=== PATIENT | male | born 1960 | race Caucasian/White ===

== ENCOUNTER 2023-10-02 14:53 | Inpatient (IN) | payer OTHER, SELFPAY ==
[2023-10-01] VITALS (9 sets, daily range): BP systolic 111–148; BP diastolic 64–92; PULSE 65; BMI 36.1; BMI 35.4
--- NOTE | 2023-10-01 11:19 | ED.CVA ---
History of Present Illness
General
Chief Complaint: CVA/TIA Symptoms
Source: patient
Exam Limitations: none
Time Seen by Provider: 10/01/23 11:06
Onset of Stroke Symptoms
Onset of symptoms known: Yes
Date of onset of symptoms: 10/01/23
Time pt last seen normal is known: Yes
Date last time pt seen normal: 10/01/23
Travel History
Have you had any contact with someone who has COVID-19?: No
Do you have any symptoms of coronavirus? Fever > 100 degrees, chills, cough, shortness of breath, sore throat, loss of taste or smell, muscle aches, or headache?: No
History of Present Illness
History of Present Illness:
See MDM
Past History
Past History
ED Past Medical History: CAD, HTN and Hypercholesterolemia
ED Past Surgical History: Cardiac
Social History
Tobacco: Smoker
Alcohol: None
Phy Exam
Physical Exam
Physical Exam:
See MDM
Scores
NIH Stroke Score
Level of Consciousness: 0 - Alert
LOC Questions: 0-Answers both correctly
LOC Commands: 0-Performs both correctly
Best Horizontal Gaze: 0-Normal
Visual [place]: 0=Normal, no visual loss
Facial Palsy: 0=Normal, symmetrical
Motor - Right Arm: 0=No drift 10 seconds
Motor - Left Arm: 0=No drift 10 seconds
Motor - Right Le-No drift 5 seconds
Motor - Left Le-No drift 5 seconds
Limb Ataxia: 0-Absent
Sensation: 0-Normal
Best Language: 0-No aphasia
Dysarthria: 0-Normal
Extinction and Inattention: 0-No abnormality
Total Score:: 0
Course
Orders/Labs/Results
Orders:
Orders
10/01/23 11:18
Electrocardiogram (*1) Urgent
Reason for Study: TIA/Stroke
CT Head W/o Iv Contrast Urgent
Comment:
Reason For Exam: Intermittent left facial droop
EKG- Treatment ONCE
10/01/23 11:21
Basic Metabolic Panel Urgent
Complete Blood Count/With Diff Urgent
Lyme Progressive Urgent
PTT Urgent
Prothrombin Time Urgent
10/01/23 12:02
Consult Neurology [NEUROLOGY CONSULT] Urgent
Consulting Provider: Quinn Barrera
Was physician already notified: Yes
10/01/23 12:05
CT Head & Neck Angio W/wo IV Urgent
Comment:
Reason For Exam: intermittent left facial droop
10/01/23 12:08
Add On- LAB Routine
Tests Added?: folate, ferritin, TSH reflex, B12, hbA1c, lipid panel
10/01/23 12:28
Aspirin 325 mg PO NOW STA
Abnormal Lab Results
10/01/23
11:21
RDW 14.6 H %
(11.5-14.5)
Abs Immat Gran (auto) 0.1 H 10^3/uL
(0-0.05)
Absolute Lymphs (auto) 3.5 H 10^3/uL
(1.2-3.4)
Absolute Monos (auto) 0.8 H 10^3/uL
(0.1-0.6)
Chloride 108 H mmol/L
(98-107)
10/01/23 11:21
10/01/23 11:21
Vital Signs
Initial and Last Documented VS:
Initial Vital Signs
Temp Pulse Resp BP Pulse Ox
98.1 F 74 20 148/89 98
10/01/23 10:59 10/01/23 10:59 10/01/23 10:59 10/01/23 10:59 10/01/23 10:59
Last Documented Vital Signs
Temp Pulse Resp BP Pulse Ox
98.1 F 67 13 148/92 96
10/01/23 10:59 10/01/23 11:16 10/01/23 11:16 10/01/23 11:16 10/01/23 11:16
MDM/Problems Addressed
Differential Diagnosis Includes:
HPI and MDM Narrative:
63-year-old male presenting for intermittent left facial droop. Patient states that has been ongoing for the past several weeks. He has noticed intermittent facial tingling and intermittent left hand tingling. Patient did not seek medical
attention because he was on vacation. They recently returned from a trip.
Patient states the symptoms reoccurred this morning. Around 8 AM, he noted that his left face was drooping. It lasted for 10 minutes. During this time, he was having trouble talking because his tongue would not move appropriately, per patient
Patient has a history of CABG and is an active smoker. Patient states he is on aspirin and Plavix
Physical exam
General: Well appearing and non-toxic
HEENT: protecting airway
Neck: appears supple
CV: No evidence of cyanosis. Regular rate and rhythm
Resp: No accessory muscle use
Abd: Non-distended
Extremities: No deformities
Neuro: alert. No focal deficits
Psych: Normal affect
Skin: Intact
Problems Addressed including Acute and Chronic Conditions affecting care:
1. Rolling TIAs
Acuity: acute
Prognosis: stable
Details: Given the past medical history and his intermittent TIAs, will admit
Updates
[address] head negative. Workup negative. Patient remains symptom-free. Case discussed with neurology who will evaluate and suggested CTA
Differential Diagnosis (but not limited to):
Testing considered:
Drug therapy (if applicable): OTC meds, please see d/c instruction regarding Rx drugs
Amount and/or Complexity of Data Reviewed
Clinical info obtained from: Patient
External data reviewed: N/A
Labs I independently reviewed (but not limited to): White blood cell count normal
Radiology: The CT scan was personally and independently reviewed. In addition, official CT report reviewed.
Pulse Ox: not hypoxic
EKG independently reviewed: Sinus rhythm, normal axis, no STEMI
Barrel Lapper: sinus rhythm
Critical Care: N/A
Risk of Complication:
Social Determinants of health: Good social support
Discussed with other providers: Neurology, hospitalist
Escalation of Care includes Admit/Obs: Given concern for: TIAs, will admit
Occasional wrong word or 'sound a like' substitutions may have occurred due to the inherent limitations of voice recognition software. Read the chart carefully and recognize, using context, where substitutions have occurred.
*Critical Care Note
Total Time (30-74mins, 75-104mins- exclusive of procedures): Not Applicable
ED Attending Note
-
Portions of this chart may have been created with voice recognition software.� Occasional wrong word or��sound alike� substitutions may have occurred due to the inherent limitations of voice recognition software.
Discharge Plan
Departure
Patient Disposition: Admit
Date of Disposition: 10/01/23
Time of Disposition: 12:29
Admit to: Telemetry
Presentation/result/management discussed w/ accepting MD/DO: Hospitalist
Discharge Problem:
Brain TIA
Referrals:
Kali Vasquez MD [Family Provider] -
Interventions
Interventions:
*Risk Screen - Suicide Last Done: 10/01/23 10:59
*General Assessment Last Done: 10/01/23 10:59
*Neglect/Abuse Screening Last Done: 10/01/23 10:59
ED- Fall Risk Assessment Last Done: 10/01/23 11:18
*ED COVID-19 Vaccine History Last Done: 10/01/23 11:07
ED- Pulmonary Assessment Last Done: 10/01/23 11:15
ED- Neurological Assessment Last Done: 10/01/23 11:15
ED- Cardiac Assessment Last Done: 10/01/23 11:15
Discharge Date and Time
Print Language: FRENCH
[2023-10-01 11:40] LABS: APTT 26.3 Sec (23.4-35.0); INR 0.98; PT 12.8 Sec (11.4-14.6)
[2023-10-01 11:50] LABS: Blood Urea Nitrogen 15 mg/dl (9-20); Calcium 9.7 mg/dl (8.4-10.2); Carbon Dioxide 22 mmol/L (22-30); Chloride 108 mmol/L (98-107); Estimated Creatinine Clearance > 125 ml/min; Glucose 96 mg/dl (70-99); Sodium 139 mmol/L (135-145); eGFR > 60.00
[2023-10-01 11:53] LABS: % Eosinophils 1.9 % (0-6); % Immature Granulocytes 0.5 % (0-0.5); % Lymphocytes 36.9 % (20.5-51.1); % Monocytes 8.3 % (1.7-9.3); % Neutrophils 51.4 % (42.2-75.2); Absolute Basophils 0.1 10^3/uL (0-0.2); Absolute Eosinophils 0.2 10^3/uL (0-0.7); Absolute Immature Granulocytes 0.1 10^3/uL (0-0.05); Absolute Lymphocytes 3.5 10^3/uL (1.2-3.4); Absolute Monocytes 0.8 10^3/uL (0.1-0.6); Absolute Neutrophils 4.8 10^3/uL (1.4-6.5); Hemoglobin 15.2 g/dL (13.0-18.0); Mean Corp Hgb Conc. 34.5 g/dL (33.0-37.0); Mean Corpuscular Volume 89.6 fL (80.0-94.0); Nucleated Red Blood Cells % 0 % (-); Red Blood Cell Count 4.91 10^6/uL (4.70-6.10); Red Cell Dist. Width 14.6 % (11.5-14.5); White Blood Cell Count 9.4 10^3/uL (4.8-10.8)
--- NOTE | 2023-10-01 12:02 | CON.NEURO4 ---
Addendum entered and electronically signed by Quinn Barrera MD 10/01/23 15:19:
Studies reviewed.
I have personally examined the patient. I reviewed and agree with the [facility]'s Note.
My addenda:
Awake, alert, interactive. No acute distress.
Speech intact.
Follows 2-step requests w/o difficulty. No tremor.
Extra-ocular movements grossly intact.
Facial movements full and symmetric. Hearing intact to normal conversational volume.
Normal UE movements bilaterally.
Neck: full ROM.
Chest: no dyspnea
Heart: no JVD
Ext: (-) Clubbing, (-) Cyanosis, (-) Edema
IMPRESSIONS/RECOMMENDATIONS:
Abrupt onset of recurrent speech changes as well as left hand skin sensation changes which are asynchronous
Add aspirin to patient's usual clopidogrel
Elevate patient's usual simvastatin (began 1 day ago) from 40 mg to dosing of 80 mg routinely
Smoking cessation counseling
We will follow MRI of brain results
D/W patient / family
Will continue to follow pending results.
Original Note:
Documented by User: Taylor Faulkner NP 10/01/23 14:26
Consultation - Neurology 4
-
CONSULTING PHYSICIAN: Quinn Barrera MD
REFERRING PHYSICIAN: ER/Dr. Parada
DICTATED BY: SHERMAN Ruvalcaba
DATE/TIME OF REQUEST: 10/01/23
DATE/TIME OF CONSULTATION: 10/01/23
Reason for Consultation: Recurrent TIA
History of Present Illness:
This is a 63-year-old right-handed male who has presented to the hospital with report of speech difficulty, left facial drooping, and left hand sensation change. Patient reports that about three months ago he started having intermittent tingling in
his left hand fingers. This sensation change was transient but happening multiple times on a daily basis. The tingling sometimes was in his 4th and 5th fingers, other times in his first three fingers, and rarely in his right hand thumb only. He
attributed this to a neck issue and went to his chiropractor who adjusted his neck and provided him with a cervical collar to wear. He reports that these symptoms improved somewhat after that but still occur intermittently.
About one month ago, he reports starting to have episodes of speech difficulty, slurred speech, and left facial drooping. These episodes last 5-10 minutes before symptoms resolve. They typically happen in the afternoon or evening and he attributed
it to fatigue. About two weeks ago the episodes started happening daily. This morning he had an episode of left facial drooping and difficultly with speech around 0800, but this time the facial droop did not resolve and his speech has continued to
feel mildly slurred to him, prompting him to come to the ER for evaluation. CT head and CTA head/neck were obtained on arrival and is negative fro any acute abnormalities. NIHSS is <6 and he is not a candidate for TNK/IAT. Patient notes chronic
intermittent blurred vision associated with turning his head rapidly. He also notes chronic tingling in his RLE since having his cardiac surgery in 2011. He also reports chronic ringing in his left ear that started 5 years ago after having a virus.
He was evaluated by his PCP one week ago for an annual physical and was started on simvastatin 40mg daily for what his reports is 'very high cholesterol.' His first dose was yesterday. He was noted to have a rash on his left posterior shoulder
that he says is mosquito bites, but his PCP ordered him Valtrex thinking it might be shingles, he did not fill the script. He is taking Plavix 75mg daily due to a history of RLE bypass, he denies missing any doses. He denies any history of TIA,
stroke, or events like this in the past.
Past Medical History: PAD, HTN, HLD
Surgical History: RLE bypass, cholecystectomy, first toe right foot amputation, BLE venous grafting
Family History: Reviewed and noncontributory.
Social History: Current smoker. Denies alcohol and illicit drug use.
Allergies: No known allergies.
Home Medications: See below.
Review of Symptoms:
Patient denies any fever, headache, chest pain, shortness of breath, GI or symptoms.
�Per the HPI.�All systems are reviewed negative except above.
Physical Exam:
The patient is afebrile, abdomen is nondistended, breathing is unlabored, skin is warm and dry, no edema. Several small red circular spots noted on left posterior shoulder, not a bulls eye appearance.
NIH Stroke Scale:
I performed the NIH stroke scale on the patient on 10/01/23 at 1245. The patient scored 2 points on the NIH stroke scale assessment, which were assigned as follows: See below.
Neurologic Examination:
The patient is awake, alert and oriented x 3. He is able to follow commands and answer questions appropriately. There is no aphasia or dysarthria. On cranial nerve assessment, pupils are 3 mm bilateral, round and reactive to light and
accommodation. Visual oshea are full. Extraocular movements are intact. There is very slight left facial drooping. Hearing is intact bilaterally to normal conversation volume. Tongue palate and uvula are midline. Sternocleidomastoid strengths are
full bilaterally. Motor strengths are 5/5 bilateral upper and lower extremities on medical research Mary[place] scale. There is no drift or involuntary movement noted. Deep tendon reflexes are 1+ bilateral upper and lower extremities and Babinski is
absent bilaterally. Sensations of touch and vibration are intact and bilaterally symmetrical. Sensation of cold is mildly reduced in the left face. There was no extinction noted on double simultaneous stimulation. Coordination is intact by finger to
nose bilaterally.
Lab Results: See below.
Neuro Imaging:
1. CT Head 10/01/23: Normal.
2. CTA Head/Neck 10/01/23: There is a small amount of partially calcific atherosclerotic plaque at both carotid bifurcations without significant stenosis. The study is otherwise normal.
Differentials for the patient's presentation include:
1. Concern for recurrent TIA producing speech changes and left facial drooping. Small ischemic stroke possible.
2. LUE ulnar and/or radial nerve palsy likely producing left hand tingling.
3. CTA head/neck negative for dissection and significant stenosis.
Patient has the following risk factors for their symptoms: Smoker, HTN, HLD, PAD
IV Tenecteplase/IAT candidacy: Not a candidate due to NIHSS<6, no LVO.
Recommendations:
-Provide loading dose of aspirin 325mg x1 now.
-Initiate DAPT with aspirin 81mg and Plavix 65mg daily for 21 days. After 21 days, discontinue aspirin and continue Plavix 75mg daily only, indefinitely.
-MRI brain noncontrast pending.
-Goal normotension.
-LDL goal <70. Lipid panel is pending. Continue home atorvastatin 40mg daily for now.
-Goal normoglycemia, hbA1c is pending.
-Checking blood work for metabolic abnormalities.
-NIHSS and neurological checks per unit guidelines.
-Provide patient with a stroke education packet.
-Smoking cessation counseling.
-Patient should follow-up with Neurology as an outpatient, may see the [facility] or one of the physicians.
Discussed patient care with: Dr. Barrera, the patient, patient's .
Vital Signs and Labs
-
Vital Signs and Labs:
Vital Signs
Temp Pulse Resp BP Pulse Ox
98.1 F 57 15 117/72 95
10/01/23 10:59 10/01/23 13:00 10/01/23 13:00 10/01/23 13:00 10/01/23 13:00
Lab Results
10/01/23 11:21
10/01/23 11:21
PT 12.8 Sec (11.4-14.6) 10/01/23 11:21
INR 0.98 10/01/23 11:21
APTT 26.3 Sec (23.4-35.0) 10/01/23 11:21
Sodium 139 mmol/L (135-145) 10/01/23 11:21
Potassium mmol/L (3.5-5.1) 10/01/23 11:21
BUN 15 mg/dl (9-20) 10/01/23 11:21
Glucose 96 mg/dl (70-99) 10/01/23 11:21
Calcium 9.7 mg/dl (8.4-10.2) 10/01/23 11:21
Medications
-
Home Medications
�Medication �Instructions �Recorded
clopidogrel 75 mg tablet (Plavix) 75 mg PO DAILY 10/01/23
simvastatin 20 mg tablet 20 mg PO DAILY 10/01/23
NIH Stroke Score
Subsequent NIH Scale
Date of Subsequent NIH Scale: 10/01/23
Time of Subsequent NIH Scale: 12:45
NIH Stroke Score
Level of Consciousness: 0 - Alert
LOC Questions: 0-Answers both correctly
LOC Commands: 0-Performs both correctly
Best Horizontal Gaze: 0-Normal
Visual [place]: 0=Normal, no visual loss
Facial Palsy: 1=Minor paralysis
Motor - Right Arm: 0=No drift 10 seconds
Motor - Left Arm: 0=No drift 10 seconds
Motor - Right Le-No drift 5 seconds
Motor - Left Le-No drift 5 seconds
Limb Ataxia: 0-Absent
Sensation: 1-Mild loss
Best Language: 0-No aphasia
Dysarthria: 0-Normal
Extinction and Inattention: 0-No abnormality
Total Score:: 2
Modified [place] (mRS) Score
Modified [place] Scale (mRS): No significant disability. Able to carry out usual activities.
Score: 1
Alteplase Contraindication
Inclusion and Exclusion criteria reviewed: Yes

Documented by User: Quinn Barrera MD 10/01/23 15:15
Consultation - Neurology 4
-
CONSULTING PHYSICIAN: Quinn Barrera MD
REFERRING PHYSICIAN: ER/Dr. Parada
DICTATED BY: SHERMAN Ruvalcaba
DATE/TIME OF REQUEST: 10/01/23
DATE/TIME OF CONSULTATION: 10/01/23
Reason for Consultation: Recurrent TIA
History of Present Illness:
This is a 63-year-old right-handed male who has presented to the hospital with report of speech difficulty, left facial drooping, and left hand sensation change. Patient reports that about three months ago he started having intermittent tingling in
his left hand fingers. This sensation change was transient but happening multiple times on a daily basis. The tingling sometimes was in his 4th and 5th fingers, other times in his first three fingers, and rarely in his right hand thumb only. He
attributed this to a neck issue and went to his chiropractor who adjusted his neck and provided him with a cervical collar to wear. He reports that these symptoms improved somewhat after that but still occur intermittently.
About one month ago, he reports starting to have episodes of speech difficulty, slurred speech, and left facial drooping. These episodes last 5-10 minutes before symptoms resolve. They typically happen in the afternoon or evening and he attributed
it to fatigue. About two weeks ago the episodes started happening daily. This morning he had an episode of left facial drooping and difficultly with speech around 0800, but this time the facial droop did not resolve and his speech has continued to
feel mildly slurred to him, prompting him to come to the ER for evaluation. CT head and CTA head/neck were obtained on arrival and is negative fro any acute abnormalities. NIHSS is <6 and he is not a candidate for TNK/IAT. Patient notes chronic
intermittent blurred vision associated with turning his head rapidly. He also notes chronic tingling in his RLE since having his cardiac surgery in 2011. He also reports chronic ringing in his left ear that started 5 years ago after having a virus.
He was evaluated by his PCP one week ago for an annual physical and was started on simvastatin 40mg daily for what his reports is 'very high cholesterol.' His first dose was yesterday. He was noted to have a rash on his left posterior shoulder
that he says is mosquito bites, but his PCP ordered him Valtrex thinking it might be shingles, he did not fill the script. He is taking Plavix 75mg daily due to a history of RLE bypass, he denies missing any doses. He denies any history of TIA,
stroke, or events like this in the past.
Past Medical History: PAD, HTN, HLD
Surgical History: RLE bypass, cholecystectomy, first toe right foot amputation, BLE venous grafting
Family History: Reviewed and noncontributory.
Social History: Current smoker. Denies alcohol and illicit drug use.
Allergies: No known allergies.
Home Medications: See below.
Review of Symptoms:
Patient denies any fever, headache, chest pain, shortness of breath, GI or symptoms.
�Per the HPI.�All systems are reviewed negative except above.
Physical Exam:
The patient is afebrile, abdomen is nondistended, breathing is unlabored, skin is warm and dry, no edema. Several small red circular spots noted on left posterior shoulder, not a bulls eye appearance.
NIH Stroke Scale:
I performed the NIH stroke scale on the patient on 10/01/23 at 1245. The patient scored 2 points on the NIH stroke scale assessment, which were assigned as follows: See below.
Neurologic Examination:
The patient is awake, alert and oriented x 3. He is able to follow commands and answer questions appropriately. There is no aphasia or dysarthria. On cranial nerve assessment, pupils are 3 mm bilateral, round and reactive to light and
accommodation. Visual oshea are full. Extraocular movements are intact. There is very slight left facial drooping. Hearing is intact bilaterally to normal conversation volume. Tongue palate and uvula are midline. Sternocleidomastoid strengths are
full bilaterally. Motor strengths are 5/5 bilateral upper and lower extremities on medical research Mary'[place] scale. There is no drift or involuntary movement noted. Deep tendon reflexes are 1+ bilateral upper and lower extremities and Babinski is
absent bilaterally. Sensations of touch and vibration are intact and bilaterally symmetrical. Sensation of cold is mildly reduced in the left face. There was no extinction noted on double simultaneous stimulation. Coordination is intact by finger to
nose bilaterally.
Lab Results: See below.
Neuro Imaging:
1. CT Head 10/01/23: Normal.
2. CTA Head/Neck 10/01/23: There is a small amount of partially calcific atherosclerotic plaque at both carotid bifurcations without significant stenosis. The study is otherwise normal.
Differentials for the patient's presentation include:
1. Concern for recurrent TIA producing speech changes and left facial drooping. Small ischemic stroke possible.
2. LUE ulnar and/or radial nerve palsy likely producing left hand tingling.
3. CTA head/neck negative for dissection and significant stenosis.
Patient has the following risk factors for their symptoms: Smoker, HTN, HLD, PAD
IV Tenecteplase/IAT candidacy: Not a candidate due to NIHSS<6, no LVO.
Recommendations:
-Provide loading dose of aspirin 325mg x1 now.
-Initiate DAPT with aspirin 81mg and Plavix 65mg daily for 21 days. After 21 days, discontinue aspirin and continue Plavix 75mg daily only, indefinitely.
-MRI brain noncontrast pending.
-Goal normotension.
-LDL goal <70. Lipid panel is pending. Continue home atorvastatin 40mg daily for now.
-Goal normoglycemia, hbA1c is pending.
-Checking blood work for metabolic abnormalities.
-NIHSS and neurological checks per unit guidelines.
-Provide patient with a stroke education packet.
-Smoking cessation counseling.
-Patient should follow-up with Neurology as an outpatient, may see the [facility] or one of the physicians.
Discussed patient care with: Dr. Barrera, the patient, patient's .
NIH Stroke Score
NIH Stroke Score
Total Score:: 2
Modified [place] (mRS) Score
Score: 1
[2023-10-01 12:43] LABS: Platelet Count 240 10^3/uL (130-400)
[2023-10-01] MEDS: ASPIRIN 325 MG PO (12:57)
--- NOTE | 2023-10-01 13:56 | HPS.HSE ---
Family Physician
-
Family Physician: Kali Vasquez
Chief Complaint
-
Speech difficulty
History of Present Illness
63-year-old male presented to the hospital with speech difficulty. He also had some sensory changes in the left hand also facial droop. 3 months ago he started having some intermittent tingling in the left hand mostly in the ring finger and fifth
fingers. Sometimes in the past 3 fingers also he saw a chiropractor who adjusted his neck and gave him a call. Month ago he had some speech difficulty and facial droop lasted about 10 minutes and went away. 2 weeks ago started happening more
frequently this morning he had a similar episode around 8:00 in the morning which did not resolve and he continued to have speech problems. He also has tinnitus in his left ear which started about 5 years ago
Medical History
Past Medical History
Past Medical History: Reports Other
Additional Past Medical History:
Peripheral artery disease, hypertension, hyperlipidemia
Past Surgical History: Reports Other
Additional Past Surgical History:
History of cholecystectomy, right lower extremity vascular stent followed by bypass surgery in the right lower extremity, first toe amputation of the right foot, saphenous vein harvested from left leg for grafting on the right side
Social History
Tobacco: Smoker
Alcohol: None
Drug: None
Personal:
Living: With Family
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
Family History
Family History: Other (Mother with history of TIA)
Allergies / Home Medications
Allergies reflects when Allergies were last updated in [facility].
Home Medications with original date entered in [facility]
Allergy/Medication List:
Allergies
Allergy/AdvReac Type Severity Reaction Status Date / Time
No Known Allergies Allergy Verified 10/01/23 11:04
Home Medications
amlodipine 10 mg tablet 10 mg PO DAILY 10/01/23
clopidogrel 75 mg tablet (Plavix) 75 mg PO DAILY 10/01/23
gabapentin 400 mg capsule 800 mg PO BID 10/01/23
metoprolol succinate 25 mg capsule sprinkle, ext. release 24 hr 25 mg PO BID 10/01/23
omega-3 acid ethyl esters 1 gram capsule 2 cap PO BID 10/01/23
simvastatin 40 mg tablet 40 mg PO HS 10/01/23
Review of Systems
-
A 12 point ROS was completed and negative except as noted: Yes
Respiratory: Denies Trouble Breathing
Cardiac: Denies Chest Pain
Abdomen/GI: Denies Abdominal Pain
Neurological: Reports Numbness (inteermittent left sided hand numbness); Denies Weakness
Physical Exam
Vital Signs
Vital Signs
Temp Pulse Resp BP Pulse Ox
98.1 F 57 15 117/72 95
10/01/23 10:59 10/01/23 13:00 10/01/23 13:00 10/01/23 13:00 10/01/23 13:00
Physical Exam
General: Comfortable and Conversant
Respiratory: Clear and Wheezes
Cardiac: S1/S2 and Regular Rhythm
GI: Soft and Normal Bowel Sounds
Neuro: Nonfocal/grossly intact
Psych: Intact Judgment/Insight
Laboratory Results
-
10/01/23 11:21
10/01/23 11:21
Laboratory Results
PT 12.8 Sec (11.4-14.6) 10/01/23 11:21
INR 0.98 10/01/23 11:21
APTT 26.3 Sec (23.4-35.0) 10/01/23 11:21
Total Bilirubin Cancelled 10/01/23 11:21
AST Cancelled 10/01/23 11:21
ALT Cancelled 10/01/23 11:21
Alkaline Phosphatase Cancelled 10/01/23 11:21
Data Reviewed
-
CT Scan: Report Reviewed by me (CT of the head-normal)
Ultrasound: Report Reviewed by me (Carotid ultrasound-small amount of partially calcific atherosclerotic plaque at both carotid bifurcations without significant stenosis.)
Medical Tests (Nuc Med, Echo, EKG etc): Image Personally Visualized and interpreted (EKG-sinus rhythm no ischemia)
Impression/Plan
-
IMPRESSION/PLAN:
# Intermittent speech abnormality
Admit to tele Obs to rule out stroke
CT without any acute changes
Ultrasound of the carotid noted
MRI of the brain ordered
Will also get MR C Spine
Neurology to evaluate
NIH scale and neurochecks
Aspirin has been ordered-continue
Patient is already on a statin
Consider EEG if no other changes on MRI
Lyme testing
# Small rash/raised bumps on the left shoulder-patient states that he slept in the car with windows rolled down and had mosquito bites.
He does not feel or think that this is shingles
# PAD
Had a vascular stent right lower extremity followed by bypass surgery. He got venous graft-saphenous graft harvested from the left leg for the right leg.
Surgery done at [place] by Dr. Bryon Kirkpatrick, currently follows up with Dr. Albert Ascencio
Aspirin, Plavix, statin, metoprolol
# Hypertension-continue amlodipine and metoprolol
# Hyperlipidemia-continue statin
# Obesity-weight loss recommended
# Active smoker-cessation counseling
# DVT prophylaxis-Lovenox
# Full code
Discussed with neurology
Discussed with patient's at bedside
[2023-10-01 15:05] LABS: HDL Cholesterol 21 mg/dl; Total Cholesterol 247 mg/dl (50-199)
[2023-10-01 15:13] LABS: Iron 73 ug/dl (49-181)
[2023-10-01 15:22] LABS: Percent Saturation 26 % (20-50); Total Iron Binding Capacity 274 ug/dl (261-462)
--- NOTE | 2023-10-01 15:45 | PTCARENOTE ---
09/30- Patient transferred and oriented to unit without issue. AAOX3; NIH=0 at this time; Skin CDI; denies any current needs.
[2023-10-01 16:10] LABS: Folate 10.3 ng/ml (2.76-20)
--- NOTE | 2023-10-01 16:39 | PTOTSP ---
Pt is currently symptom-free. He is independent with bed mobility, transfers, and ambulation without need for any assistive devices and is able to climb stairs without difficulty. No PT needs were identified. Pt was instructed to ring for nurse if
any symptoms return here, and to return to ER if any symptoms return after discharge. PT will sign off.
[2023-10-01 16:43] LABS: LDL Cholesterol, Calculated 115 mg/dl; Triglyceride 555 mg/dl (10-149); Very Low Density Lipoprotein 111 mg/dl (0-30)
[2023-10-01 17:19] LABS: LDL Cholesterol, Direct 89 mg/dl
[2023-10-01 18:28] LABS: Vitamin B12 621 pg/ml (239-931)
[2023-10-01] MEDS: TOPROL XL 25 MG PO (19:39)
[2023-10-01] MEDS: NEURONTIN 800 MG PO (19:39)
[2023-10-01] MEDS: LIPITOR 20 MG PO (20:21)
[2023-10-02 03:27] VITALS: BP 130/70
[2023-10-02 07:00] VITALS: BP 149/79
[2023-10-02] MEDS: PLAVIX 75 MG PO (07:38)
[2023-10-02] MEDS: NORVASC 10 MG PO (07:38)
[2023-10-02] MEDS: TOPROL XL 25 MG PO (07:39)
[2023-10-02] MEDS: NEURONTIN 800 MG PO (07:39)
[2023-10-02 07:56] LABS: HDL Cholesterol 21 mg/dl; Total Cholesterol 215 mg/dl (50-199)
[2023-10-02 08:04] LABS: LDL Cholesterol, Calculated 101 mg/dl; Triglyceride 468 mg/dl (10-149); Very Low Density Lipoprotein 93 mg/dl (0-30)
[2023-10-02 08:53] LABS: Glycohemoglobin (HgbA1c) 5.8 % (4.0-5.6)
[2023-10-02 11:00] VITALS: BP 122/73
--- NOTE | 2023-10-02 11:28 | CM ---
Patient seen bedside. MRI (P).
IA completed.
Patient lives with spouse in a 2 story home.
Independent prior to admission without assistive devices.
Patient drives and works.
No hx Vn.
Denies home care needs.
PCP: Pedro
Pharmacy: [facility]
Plan: home no needs anticipated.
--- NOTE | 2023-10-02 13:29 | W.PN.NEURO.1 ---
Addendum entered and electronically signed by Blayne Perez MD 10/03/23 07:52:
Discussed with patient the findings of stroke on MRI brain. 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
this news and he endorsed understanding of this. I do not see that he needs restriction from normal driving given no neurologic deficits and patient feels returned to normal.
Original Note:
Today's Communication / Plan
-
Recommendations
-DAPT therapy aspirin and clopidogrel for total of 21 days, stop the aspirin after October 21 and continue on clopidogrel indefinitely
-Increase statin dose given his LDL goal moving forward would be less than 70, continue the current atorvastatin 20 mg daily
-Strongly encouraged smoking cessation and discussed options for this
-Continue monitoring cardiac telemetry and will check transthoracic echocardiogram
-I do not feel strongly that he would need long-term cardiac monitoring like an implanted teletypesetter monitor, short-term cardiac monitoring as an outpatient would be reasonable, suspicion for cardioembolic stroke is lower, favor atheroembolic etiology
of stroke
-Goal normotension
Neuro Assessment/Plan
Assessment
63-year-old man with a past ministry of hypertension hyperlipidemia peripheral arterial disease with active tobacco use presented to hospital with episode of left facial droop, dysarthria left hand and finger paresthesia which is resolved.
Patient has not had any similar episodes of this he has been compliant with clopidogrel at home says that he used to be on aspirin after his peripheral vascular disease bypass on the right leg in the past. He does endorse still using some tobacco
smoking and has tried to quit a couple of times in the past but has proved difficult.
Neurologic examination is normal
MRI brain reviewed which shows small areas of embolic appearing infarction in the right MCA territory in the right frontal and parietal lobes.
CTA of the head and neck with no significant intracranial stenosis no carotid stenosis and no intracranial occlusions or aneurysms seen.
Assessment: Right-sided ischemic strokes, embolic appearing. Risk factors are tobacco smoking, hypertension hyperlipidemia and obesity. Stroke etiology felt most likely atheroembolic, less likely but cardioembolic still would be a possibility.
Would categorize as a minor stroke as patient seems to return to completely normal at this time.
Subjective/Objective
Subjective Data
Date of Service: October 02, 2023
No acute events, patient feels like symptoms of the left hand/finger numbness and left face weakness have resolved, no headaches, discussed stroke/TIA possibility, encouraged smoking cessation
Objective Data
Vital Signs
Temp Pulse Resp BP Pulse Ox
97.5 F 68 18 122/73 97
10/02/23 11:00 10/02/23 11:00 10/02/23 11:00 10/02/23 11:00 10/02/23 11:00
Lab Results
10/01/23 11:21
10/01/23 11:21
PT 12.8 Sec (11.4-14.6) 10/01/23 11:21
INR 0.98 10/01/23 11:21
APTT 26.3 Sec (23.4-35.0) 10/01/23 11:21
Sodium 139 mmol/L (135-145) 10/01/23 11:21
Potassium mmol/L (3.5-5.1) 10/01/23 11:21
BUN 15 mg/dl (9-20) 10/01/23 11:21
Glucose 96 mg/dl (70-99) 10/01/23 11:21
Calcium 9.7 mg/dl (8.4-10.2) 10/01/23 11:21
LDL Cholesterol Direct 89 mg/dl 10/01/23 11:21
LDL Cholesterol, Calc 101 mg/dl 10/02/23 06:07
Vitamin B12 621 pg/ml (239-931) 10/01/23 14:47
Patient Allergies
No Known Allergies Allergy (Verified 10/01/23 11:04)
LDL Level: >70, statin ordered
Review of Systems
-
History Source: Patient
All other systems: Reviewed and negative
Constitutional: No Symptoms
EENT: No Symptoms Reported
Respiratory: No Symptoms
Cardiac: No Symptoms
Abdomen/GI: No Symptoms
Genitourinary: No Symptoms
Musculoskeletal: No Symptoms
Skin: No Symptoms
Neuro: Speech Problem and See existing Neuro Note
Endocrine: No Symptoms
Hematologic / Lymphatic: No Symptoms
Physical Exam
-
General: Comfortable
Eyes: No Ptosis
HEENT: Normocephalic
Neck: No Bruits Bilaterally
Respiratory: Clear to Auscultation
Cardiac: Regular Rhythm
GI: Normal Bowel Sounds
Skin: Unremarkable
Extremities: No Clubbing
Psych: Unremarkable
Extended Neurological Exam
Mood & Affect: Mood Unremarkable and Affect Unremarkable
Attention Span & Concentration: Awake, Alert and Interactive
Memory: Unremarkable
Tremor: Hand Tremor Absent
Involuntary Movement: None
Speech: Quality Unremarkable and Quantity Unremarkable; Negative Expressive Aphasia, Receptive Aphasia or Dysarthric
Cranial Nerve II: Left Eye: Pupillary Reactivity Unremarkable and Pupillary Size Unremarkable
Cranial Nerve II: Right Eye: Pupillary Reactivity Unremarkable and Pupillary Size Unremarkable
Cranial Nerves III, IV, : Extraocular Movement: Extraocular Movement Full in all Directions
Cranial Nerve VII: Facial Symmetry: Normal Facial Symmetry
Muscle Strength, Overall: Full Throughout
Muscle Bulk & Tone: Bulk Unremarkable
Pronator Drift: No Drift in Upper Extremities
Coordination: [id number] Testing Unremarkable
Gait & Station: Other (Stands and walks normally)
Data Reviewed
-
CT-A: Report Reviewed and Image Reviewed
MRI Head: Report Reviewed and Image Reviewed
Echocardiogram: Ordered and Pending
Labs: Report Reviewed
Lipid Profile: Report Reviewed
[2023-10-02] MEDS: ASPIRIN 325 MG PO (14:11)
--- NOTE | 2023-10-02 14:42 | W.PN.HOSP.TC ---
Addendum entered and electronically signed by Vidal Harris MD 10/02/23 16:28:
ECHO without obvious source of emboli.
Cards would arrange Holter as OP.
Pt is keen to go home today . Neuro is ok for dc from their standpoint.
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
Original Note:
Today's Communication/Plan
-
Change in Inpt
ECHO
CW Tele
Assessment / Plan
Assessment / Plan
# Intermittent speech abnormality with left facial droop and left hand an finger sensory symptoms
MRI of the brain shows nonhemorrhagic small ischemic infarcts in the right frontal and parietal lobes raising embolic etiology concerns.
Patient has no significant stenosis in the carotids.
He is a smoker and he has got a peripheral arterial disease. I suspect smoking is the biggest risk factor for him. He is in sinus rhythm. He denies any palpitations.
Discussed with neurology who recommends a longer heart monitor. Discussed with on-call cardiology Dr. Gar who is going to arrange a Holter as an outpatient through her office.
Continue with DAPT per neurology and increase statin dose. LDL not under goal.
Blood pressures under goal. Hemoglobin A1c 5.8.
# PAD
Had a vascular stent right lower extremity followed by bypass surgery. He got venous graft-saphenous graft harvested from the left leg for the right leg.
Surgery done at [place] by Dr. Bryon Kirkpatrick, currently follows up with Dr. Albert Ascencio
CW home meds
# Hypertension-continue amlodipine and metoprolol
# Hyperlipidemia-continue statin
# Obesity-weight loss recommended
# Active smoker-cessation counseling
# DVT prophylaxis-Lovenox
# Full code
Discussed with neurology
Patient is very keen to go home today. Neurology advised to stay to cw tele and get ECHO .
He understands the findings, diagnosis, treatment changes and follow-up plan. Most importantly understands to quit smoking.
Anticipated Discharge: Today
Subjective/Interval History
-
Date of Service: October 02, 2023
Resolved neurological symptoms without any recurrence.
Denies any headache currently. No left facial numbness. No left arm symptoms.
No speech Impairment.
Objective Data
-
Vital Signs:
Vital Signs
Temp Pulse Resp BP Pulse Ox
97.5 F 68 18 122/73 97
10/02/23 11:00 10/02/23 11:00 10/02/23 11:00 10/02/23 11:00 10/02/23 11:00
I&O
10/01/23 10/02/23 10/03/23
06:59 06:59 06:59
Intake Total 600 / 600
Balance 600 / 600
Review of Systems
-
Respiratory: Denies Trouble Breathing
Cardiac: Denies Chest Pain or Palpitations
Abdomen/GI: Denies Nausea or Vomiting
Neuro: Denies Dizzy
Physical Exam
-
General: No Apparent Distress
HEENT: Moist Mucous Membranes
Respiratory: Clear to Auscultation
Cardiac: Regular Rhythm (SR on monitor) and S1/S2; Negative Murmur
Neuro: AO x 3, No Motor Deficits and Other (no aphasia); Negative Tremors, Slurred Speech or Facial Droop
Psych: Calm
Data Reviewed
-
MRI: Report Reviewed by me (MRI brain)
Labs: Labs Reviewed by me
[2023-10-02 15:00] VITALS: BP 154/88
--- NOTE | 2023-10-02 16:39 | W.DS.TRANS ---
DC Summary - [facility] Specialist
-
Discharge Instructions:
Discharge Diagnosis/Procedures Acute stroke
Diet Low Cholesterol
Activity As tolerated
Driving Restrictions advised him to
Others Tests Cardiology office will call to arrange an
outpatient cardiac rehabilitation specialist, as recommended by
neurology
Instructions:
Stand-Alone Forms:
Changes to Home Medications: Yes
Discharge Medications:
DC Medications w/original date entered in [facility]
amlodipine 10 mg tablet 10 mg PO DAILY Blood Pressure 10/01/23
clopidogrel 75 mg tablet (Plavix) 75 mg PO DAILY Blood Clot Prevention/Tx 10/01/23
gabapentin 400 mg capsule 800 mg PO BID Pain 10/01/23
metoprolol succinate 25 mg capsule sprinkle, ext. release 24 hr 25 mg PO BID Blood Pressure 10/01/23
omega-3 acid ethyl esters 1 gram capsule 2 cap PO BID Supplement 10/01/23
aspirin 81 mg tablet,delayed release 81 mg PO DAILY #30 tabs 10/02/23
atorvastatin 20 mg tablet 20 mg PO HS #30 tabs 10/02/23
Home Medication Changes
New Medication-aspirin till 10/21 and then continue Plavix indefinitely, Lipitor instead of simvastatin as he is on amlodipine
Pending Results: No
--- NOTE | 2023-10-02 17:43 | W.DCSUMMARY ---
Discharge Summary
Discharge Data
Date of Admission: 10/02/23
Date of Discharge: 10/02/23
-
Pending Results: No
Hospital Course
Primary diagnosis:
Intermittent speech abnormality with left facial droop secondary to acute few small nonhemorrhagic acute/subacute infarcts within the right frontal and parietal lobes
Left hand and fingers paraesthesias - intermittent again -secondary to cervical spine disc disease and nerve impingement
Secondary diagnosis:
Peripheral arterial disease
Essential hypertension
Hyperlipidemia
Current smoker
Hospital course:
Patient presented with episode of left facial droop, apparently some speech disturbance but also had some left hand and finger paresthesias. He had a similar episodes about the left arm paresthesias and as well as speech and left facial droop
episodes ;on the day of admission he had an episode of left facial droop and difficulty with the speech but this time the facial droop did not resolve and speech was mildly slurred prompting him to come to the ER.
His symptoms again resolved the hospital. But MRI showed diffuse nonhemorrhagic areas of acute/subacute infarcts in the right frontal and parietal lobe which might explain his left facial droop. With a 2 areas of infarcts that concern was embolic
in nature. Neck and head MRI did not show any evidence of significant stenosis of the arteries. Echo showed no evidence of emboli and it was normal. He was in sinus rhythm. Hemoglobin A1c was 5.8. Blood pressure was under goal. I think the
biggest risk factor for him is smoking. He also has a PAD on Plavix.
Neurology recommended an outpatient Holter monitor and then dual antiplatelet agents for 21 days and increase the dose of his statin.
He was told his left hand and finger symptoms is from his cervical spine disc disease and nerve impingement. It is not a persistent symptom and intermittent. He was advised to see a spine surgeon if it becomes a troubling symptom for him.
Consultants on board:
Neurology-Blayne Patel
Discharge Plan
-
Patient Disposition: Home (Routine Discharge)
Discharge Diagnosis/Procedures: Acute stroke
Condition: Fair
Diet: Low Cholesterol
Activity: As tolerated
Driving Restrictions: advised him to
Others Tests: Cardiology office will call to arrange an outpatient monitoring tech, as recommended by neurology
Activity Restrictions/Additional Instructions:
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
Referrals:
Kali Vasquez MD [Family Provider] -
Quinn Barrera MD [Active] - in one month (Get your driving forms reviewed and filled by neurology prior to resuming driving again)
Marleny Gar MD [Active] - in one month (Cardiology office will call to arrange an outpatient monitoring tech, then office visit.)
Prescriptions:
New
aspirin 81 mg Tablet,Delayed Release (Dr/Ec)
81 mg PO DAILY Qty: 30 0RF
Rx Instructions:
stop after October 21 and continue to with plavix only after
atorvastatin 20 mg Tablet
20 mg PO HS Qty: 30 0RF
Rx Instructions:
This is instead of simvastatin
Continued
clopidogrel [Plavix] 75 mg Tablet
75 mg PO DAILY
gabapentin 400 mg capsule
800 mg PO BID
amlodipine 10 mg Tablet
10 mg PO DAILY
omega-3 acid ethyl esters 1 gram capsule
2 cap PO BID
metoprolol succinate 25 mg Capsule,Sprinkle,Er 24hr
25 mg PO BID
Discontinued
simvastatin 40 mg Tablet
40 mg PO HS
Discharge Orders:
Discharge Patient (As Directed); Ordered 10/02/23
Ordered By: Vidal Harris
Discharge Date and Time
Discharge Date/Time: 10/02/23 17:33
Print Language: PAKIST[place]
[2023-10-03 13:58] LABS: Lyme Antibody Screen, EIA Negative (Negative)
== END 2023-10-02 17:33 | disposition home or self-care (01) | DRG 66 ==
LOC: 4 WEST ACU 14:53
PROVIDERS: Internal Medicine Cardiovascular Disease; ADMITTING PHYSICIAN Hospitalist; ATTENDING PHYSICIAN Internal Medicine; CONSULT PHYSICIAN Psychiatry & Neurology Neurology; EMERGENCY PHYSICIAN Student in an Organized Health Care Education/Training Program; FAMILY PHYSICIAN Internal Medicine
PROC: B24BZZZ Ultrasonography of Heart with Aorta (ICD-10-PCS; 2023-10-02)
DX: I63.411 Cerebral infarction due to embolism of right middle cerebral artery (principal); M50.322 Other cervical disc degeneration at C5-C6 level; I10 Essential (primary) hypertension; I73.9 Peripheral vascular disease, unspecified; E78.5 Hyperlipidemia, unspecified; H93.12 Tinnitus, left ear; M48.02 Spinal stenosis, cervical region; R21 Rash and other nonspecific skin eruption; R29.810 Facial weakness; R47.1 Dysarthria and anarthria; R20.2 Paresthesia of skin; R29.702 NIHSS score 2; F17.200 Nicotine dependence, unspecified, uncomplicated; E66.9 Obesity, unspecified; Z68.35 Body mass index [BMI] 35.0-35.9, adult; Z79.02 Long term (current) use of antithrombotics/antiplatelets; Z95.820 Peripheral vascular angioplasty status with implants and grafts; Z89.411 Acquired absence of right great toe
CPT/HCPCS: 70450; 70496; 70498; 70551; 72141; 80048; 80061; 82607; 82728; 82746; 83036; 83540; 83550; 83721; 85025; 85610; 85730; 86618; 93005; 93306; 97162; 97165; 99285; 99406; Q9967